=== PATIENT | female | born 1970 | race Hispanic/Latino ===

== ENCOUNTER → 2017-10-21 | Outpatient (CLI) | payer BC ==
--- NOTE | 2017-10-21 16:18 | Diagnostic Imaging Report ---
PROCEDURE:TRANSVAGINAL ULTRASOUND COMPARISON:Patients [facility], US, US PELVIS COMPLETE NON OB, 10/21/2017, 10:03. Pelvic ultrasound 11/04/15 INDICATIONS:breakthrough bleeding TECHNIQUE: Grayscale transverse and sagittal transabdominal and transvaginal images were obtained of the pelvis. Transvaginal imaging was medically necessary to evaluate the uterus and ovaries. FINDINGS: UTERUS: The uterus measures 8.4 cm in length. Myometrial echotexture is normal. Multiple fibroids are present measuring up to 11 mm. No submucosal fibroids. ENDOMETRIUM: Measures 1.3 cm in thickness. It is linear and hyperechoic and is normal. Cervix: Contains nabothian cysts. RIGHT OVARY: 1.6 x 1.9 x 3.6 cm. Echotexture is normal. A dominant follicle is present measuring 11 mm. LEFT OVARY: 1.2 x 2.2 x 2.5 cm. Echotexture is normal. A dominant follicle is present measuring 14 mm. There is no free fluid within the pelvis. No adnexal masses. CONCLUSION: 1. Fibroid uterus. Normal endometrium. 2. Normal ovaries. Dictated by: Gael Stoll M.D. on 10/21/2017 at 16:18 Electronically approved by: Gael Stoll M.D. on 10/21/2017 at 16:18
--- NOTE | 2017-10-21 16:21 | Diagnostic Imaging Report ---
PROCEDURE:US PELVIS COMPLETE NON OB COMPARISON:Patients [facility], US, US TRANSVAGINAL, 10/21/2017, 10:03. Pelvic ultrasound recently 11/04/15. INDICATIONS:Breakthrough bleeding CONCLUSION: Please refer to transvaginal ultrasound performed at the same date and time for full dictated report. Dictated by: Gael Stoll M.D. on 10/21/2017 at 16:21 Electronically approved by: Gael Stoll M.D. on 10/21/2017 at 16:21
--- NOTE | 2017-10-25 18:10 | Diagnostic Imaging Report ---
#[id number] - MGSCRBIL #BILATERAL DIGITAL SCREENING MAMMOGRAM WITH CAD: 10/21/2017 CLINICAL: Routine screening. Comparison is made to exam dated: 11/04/2015 mammogram - [facility]. Current study contains 5 films. The tissue of both breasts is heterogeneously dense. This may lower the sensitivity of mammography. Current study was also evaluated with a Computer Aided Detection (CAD) system. There is an oval mass in the right breast at 12 o'clock middle depth that appears new and is highlighted by CAD analysis. There are stable benign calcifications in the right breast. No other significant masses, calcifications, or other findings are seen in either breast. IMPRESSION: INCOMPLETE: NEEDS ADDITIONAL IMAGING EVALUATION The oval mass in the right breast is indeterminate. Additional views with possible ultrasound are recommended. The patient will be contacted by the Mammography Department to schedule this appointment. Ki Patel Jr., D.O. cw/:10/24/2017 18:34:25 Technical Analyst: Fidelia ORR(R)(M), [facility] letter sent: Additional Imaging Needed Mammogram BI-RADS: 0 Indeterminate
== END ==
LOC: MAMMO 09:29
PROVIDERS: ATTEND Obstetrics & Gynecology
DX: Z12.31 Encounter for screening mammogram for malignant neoplasm of breast (principal); N92.1 Excessive and frequent menstruation with irregular cycle
CPT/HCPCS: 76830; 76856; 77067

== ENCOUNTER → 2017-11-12 | Outpatient (CLI) | payer BC ==
--- NOTE | 2017-11-12 15:41 | Diagnostic Imaging Report ---
#[id number] - MGDXRT #UNILATERAL RIGHT DIGITAL DIAGNOSTIC MAMMOGRAM WITH SPOT COMPRESSION: 11/12/2017 Comparison is made to exams dated: 10/21/2017 mammogram and 11/04/2015 mammogram - [facility]. Current study contains 3 films. The tissue of the right breast is heterogeneously dense. This may lower the sensitivity of mammography. Additional views confirm a 8 mm round mass in the right breast at 12 o'clock middle depth. This resembles a cyst. No other significant masses or calcifications are seen in the breast. IMPRESSION: INCOMPLETE: NEEDS ADDITIONAL IMAGING EVALUATION The 8 mm round mass in the right breast is indeterminate. An ultrasound is recommended and will be performed today. Ki Patel Jr., D.O. cw/:11/12/2017 14:36:54 Intake Manager: Fidelia ORR(Everardo)(M), [facility] letter sent: Additional Imaging Needed Mammogram BI-RADS: 0 Indeterminate
--- NOTE | 2017-11-12 15:41 | Diagnostic Imaging Report ---
#[id number] - USBRELIMRT ULTRASOUND OF THE RIGHT BREAST : 11/12/2017 Comparison is made to exam dated: 11/12/2017 mammogram - [facility]. Color flow and real-time ultrasound were performed on the right breast at the 12 o'clock position. -At 12 o'clock in the retroareolar region there is a simple cyst measuring 1.2 x 0.8 x 1.2 cm. This corresponds to the mammographic finding. IMPRESSION: BENIGN There is no sonographic evidence of malignancy. A 1 year screening mammogram is recommended. Ki Patel Jr., D.O. cw/:11/12/2017 15:04:35 Supervisory Cbp Officer: HUONG ORR, [facility] letter sent: Normal Exam Ultrasound BI-RADS: 2 Benign
== END ==
LOC: MAMMO 13:51
PROVIDERS: ATTEND Obstetrics & Gynecology
DX: N63.10 Unspecified lump in the right breast, unspecified quadrant (principal)

== ENCOUNTER → 2019-03-30 | Outpatient (CLI) | payer BC ==
--- NOTE | 2019-04-02 11:10 | Diagnostic Imaging Report ---
#[id number] - MGSCRBIL #BILATERAL DIGITAL SCREENING MAMMOGRAM WITH CAD: 03/30/2019 CLINICAL: Routine screening. Comparison is made to exams dated: 11/12/2017 mammogram, 10/21/2017 mammogram, 11/04/2015 mammogram and 11/12/2017 ultrasound - [facility]. Current study contains 4 films. The tissue of both breasts is heterogeneously dense. This may lower the sensitivity of mammography. Current study was also evaluated with a Computer Aided Detection (CAD) system. Benign calcification is present in the right breast. There is a 2.5 cm oval mass with an obscured margin in the right breast central to the nipple anterior depth. No other significant masses, calcifications, or other findings are seen in either breast. IMPRESSION: INCOMPLETE: NEEDS ADDITIONAL IMAGING EVALUATION The 2.5 cm oval mass in the right breast is indeterminate. Compression views as well as an ultrasound are recommended. The patient will be contacted by the Mammography Department to schedule this appointment. KATHY IBRAHIM M.D. ct/penrad:03/30/2019 17:41:59 Nfl Player: Fidelia THAKUR)(Soha), [facility] letter sent: Additional Imaging Needed Mammogram BI-RADS: 0 Indeterminate
== END ==
LOC: MAMMO 03-03 16:42
PROVIDERS: ATTEND Obstetrics & Gynecology
DX: Z12.31 Encounter for screening mammogram for malignant neoplasm of breast (principal)
CPT/HCPCS: 77067

== ENCOUNTER → 2019-06-18 | Outpatient (CLI) | payer BC ==
--- NOTE | 2019-06-19 10:37 | Diagnostic Imaging Report ---
#[id number] - USBRELIMRT ULTRASOUND OF THE RIGHT BREAST : 06/18/2019 Comparison is made to exams dated: 06/18/2019 mammogram and 03/30/2019 mammogram - [facility]. Real-time ultrasound was performed on the right breast. There is a benign 2.2 cm oval cyst with a smooth internal wall in the right breast central to the nipple in the retroareolar region. This oval cyst is anechoic with posterior acoustic enhancement. This correlates with mammography findings. IMPRESSION: BENIGN There is no sonographic evidence of malignancy. The 2.2 cm oval cyst in the right breast is benign. A 1 year screening mammogram is recommended. KATHY IBRAHIM M.D. ct/penrad:06/18/2019 16:05:24 Instrument Repair Specialist: Yandy Olvera [facility], [facility] letter sent: Normal Exam Ultrasound BI-RADS: 2 Benign
--- NOTE | 2019-06-19 10:37 | Diagnostic Imaging Report ---
#[id number] - MGDXRT #UNILATERAL RIGHT DIGITAL DIAGNOSTIC MAMMOGRAM WITH SPOT COMPRESSION: 06/18/2019 Comparison is made to exams dated: 03/30/2019 mammogram, 11/12/2017 mammogram and 10/21/2017 mammogram - [facility]. Current study contains 3 films. The tissue of the right breast is heterogeneously dense. This may lower the sensitivity of mammography. There is a benign 2.1 cm oval cyst with a circumscribed margin in the right breast central to the nipple anterior depth. This is seen in additional views. This correlates with ultrasound findings. No other significant masses or calcifications are seen in the breast. IMPRESSION: BENIGN See the report for ultrasound performed the same day for additional details. There is no mammographic evidence of malignancy. A 1 year screening mammogram is recommended. The patient will be notified by letter of the results. KATHY IBRAHIM M.D. ct/penrad:06/18/2019 15:42:13 [employer] Sergeant: Fidelia ORR(R)(Soha), [facility] letter sent: Normal Exam Mammogram BI-RADS: 2 Benign
== END ==
LOC: MAMMO 14:09
PROVIDERS: ATTEND Obstetrics & Gynecology
DX: N63.10 Unspecified lump in the right breast, unspecified quadrant (principal)